=== PATIENT | male | born 1940 | race Caucasian/White ===

== ENCOUNTER 2017-11-12 13:48 | Emergency (ER) | payer OTHER, MEDICARE ==
[~2017-11-12] VITALS: Ht 182.9 cm; Wt 95.3 kg
[~2017-11-12 13:48] MED LIST: ALBUTEROL PO; ASPIRIN325 PO; BENICAR20 MG PO; CARVEDILOL25 MG PO; CENTRUM SILVER1 EAC2 PO; CLOPIDOGREL PO; COREG CR40 MG PO; FISH OIL 1,2001 EAC4 PO; GLUCOSAMINE CH1 EAC7 PO; LANOXIN 0.120.125 M1 PO; LANOXIN 0.120.125 M2 PO; LIPITOR40 MG PO; PLAVIX 75 MG TA75 M1 PO; REQUIP 1 MG TABL1 M1 PO; THEO-24300 MG PO; VENTOLIN HFA INH8 GM IH; VITAMIN D1000 UNI1 PO; ZANTAC 150MG T150 M1 PO
[2017-11-12] MEDS ORDERED: PREDNISONE 20 M20 MG PO (14:34)
[2017-11-12] MEDS ORDERED: BREO ELLIPTA 21 EACH IH (14:34)
[2017-11-12] MEDS ORDERED: DOXYCYCLINE 10100 MG PO (14:35)
[2017-11-12] MEDS ORDERED: TAMIFLU75 MG PER TUBE (14:35)
[2017-11-12 14:57] LABS: URINE BILIRUBIN NEGATIVE (Negative); URINE BLOOD 3+ (Negative); URINE CLARITY CLEAR; URINE COLOR YELLOW; URINE GLUCOSE-RANDOM* NEGATIVE (Negative); URINE KETONES NEGATIVE (Negative); URINE NITRITE-REFLEX NEGATIVE (Negative); URINE PROTEIN (DIPSTICK) TRACE (Negative); URINE UROBILINOGEN 0.2 E.U./dl (0.2-1.0)
[2017-11-12 14:58] LABS: ABSOLUTE NEUTROPHILS 7.6 thou/uL (1.4-8.2); BASOPHILS 0.1 % (0.0-2.0); EOSINOPHILS 0.8 % (0.0-3.0); HEMATOCRIT 43.6 % (42.0-52.0); HEMOGLOBIN 14.9 gm/dL (14.0-18.0); LYMPHOCYTES 23.5 % (24.0-44.0); MCH 32.7 pg (26.0-34.0); MCHC 34.1 g/dL (28.0-37.0); MCV 95.9 fL (80.0-100.0); MONOCYTES 9.8 % (1.0-8.0); PLATELET COUNT 233 thou/uL (150-400); POLYS 65.8 % (36.0-66.0); RBC 4.55 mil/uL (4.50-6.00); WBC 11.5 thou/uL (4.0-11.0)
[2017-11-12 15:00] LABS: CALCIUM 9.6 mg/dL (8.5-10.1); CREATININE 1.8 mg/dL (0.7-1.3); POTASSIUM 4.7 mmol/L (3.5-5.1)
[2017-11-12 15:00] LABS: URINE LEUKOCYTES-REFLEX TRACE (Negative)
[2017-11-12 15:12] LABS: SQUAMOUS None Seen /LPF (0-3)
[2017-11-12 15:13] LABS: BACTERIA-REFLEX 1-9 Few /HPF (None Seen); CASTS None Seen /LPF (None Seen); URINE RBC >20 Many /HPF (0-2)
[2017-11-12 15:14] LABS: CRYSTALS None Seen /LPF (None Seen); URINE WBC-REFLEX 0-5 Rare /HPF (0-5)
[2017-11-12] MEDS ORDERED: B & O SUPPRETT1 EAC1 RECTAL (15:57)
[2017-11-12 17:47] VITALS: BP 139/57
== END 2017-11-12 17:50 | disposition home or self-care (01) ==
LOC: ER 13:48
PROVIDERS: Emergency Medicine
DX: R30.0 Dysuria (principal); J45.909 Unspecified asthma, uncomplicated; I25.2 Old myocardial infarction

== ENCOUNTER 2018-02-28 06:40 | Inpatient (IN) | payer OTHER, MEDICARE ==
[~2018-02-28] VITALS: Ht 182.9 cm; Wt 99.3 kg
--- NOTE | ~2018-02-28 | D ---
[facility] [place] [address] DISCHARGE SUMMARY Name: MONTY SMART Room #: 210-P [facility] IN M.R.#: [id number] Admission: 03/01/18 Attend Phys: Evaristo Arreola MD, Discharge: 03/03/18 Date of : 38 Report #: [id number] THIS REPORT FOR: //name// CC: Gasper Figueroa DATE OF SERVICE: 03/03/2018 HOSPITAL COURSE: The patient is a 77-year-old male who was admitted for cardiac catheterization and intervention and flow wire of the left main intervention of the circumflex if flow wire was negative. He was found to have some acute kidney insufficiency on chronic kidney disease. Seen by Nephrology. Longstanding history of obstructive uropathy and stone in the bladder. He unfortunately cultured pseudomonas in his urine. He is an I and O cath, fluids, and holding the INOCENCIO, ARB diuretic, creatinine fell to 2:1 to the catheterization lab. The FFR across the left main lesion which was 50%-60% suggested 0.97 not physiologically significant. Thus, then intervention to the circumflex is a complex case because of severe tortuosity of the aortoiliac system. He is able to dilate and stent the proximal circumflex. The procedure went well, a 2.75 x 12 Resolute drug-eluting stent, but this was postdilated with a noncompliant balloon up to 3.3 mm, yielding 0% residual and ROSA grade 3 flow was a high grade lesion. LAD was preserved right from prior cath was preserved. He was seen by Infectious Disease. He was treated with IV meropenem, which was marginally sensitive than Fortaz. Infectious Disease is going to way in, but I believe he will be discharged on Cipro for a week, although they are not confident that the pseudomonas will ever be completely cleared. He is asymptomatic from this. He does feel better post-stent. No complaints of chest pain. His creatinine is 1.9. Potassium 4.4. Troponin 0.53, not significant. H and H was 12.3 and 36.4. He will be discharged on torsemide 20, losartan 25 per Nephrology's recommendations in the lower dose of losartan, aspirin and Plavix. We will cut back to a baby aspirin in 1 month. Flomax, atorvastatin 40, bethanechol 50 b.i.d., carvedilol 12.5 b.i.d., albuterol, and I believe p.o. Cipro, but I am waiting the final recs from Dr. Juve Wright of Infectious Disease. DISCHARGE DIAGNOSES: 1. Coronary artery disease with successful stent of the circumflex artery. Flow wire, pressure wire crossed left main lesion of 50% not hemodynamically or physiologically significant. 2. Acute on chronic kidney insufficiency seen by Nephrology. 3. History of obstructive uropathy with the retained bladder stone. 4. Pseudomonas aeruginosa urinary tract infection. 5. Hypertension. 6. Hypercholesterolemia. [address] [address] DISCHARGE SUMMARY Name: MONTY SMART Room #: 210-P DIS IN M.R.#: [id number] Admission: 03/01/18 Attend Phys: Evaristo Arreola MD, Discharge: 03/03/18 Date of : 38 Report #: [id number] Recommendations and plan are all as noted above. No MRI or dental work for 3 months. No lying in tub, Jacuzzi or ko for a week. Antibiotics per Infectious Disease, which I believe to p.o. Cipro for 7-10 days and then the dual antiplatelet therapy for at least a year. Followup is arranged in 3 months. <ELECTRONICALLY SIGNED> By: Evaristo Arreola MD, FACC 03/06/18 1100 0845 0932 Evaristo Arreola MD, FACC /nt
--- NOTE | ~2018-02-28 | EKG ---
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1940 Requested By: Evaristo Arreola Order Number: [id number] MD: Seb Larose Measurements Intervals [place] Rate: 67 P: 49 MS: 201 QRS: -53 QRSD: 135 T: -23 QT: 441 QTc: 466 Interpretive Statements Sinus rhythm Left bundle branch block Compared to ECG 02/01/2009 06:40:04 Ventricular pacing no longer present Electronically Signed On 02-28-2018 7:45:37 CDT by Seb Larose [email or web address] <ELECTRONICALLY SIGNED> By: Seb Larose MD, [facility] 02/28/18 0745 2 2 Seb Larose MD, [facility] /EPI
--- NOTE | ~2018-02-28 | H ---
[facility] [place] [address] HISTORY AND PHYSICAL Name: MONTY SMART Room #: 210-P [facility] IN M.R.#: [id number] Admission: 03/01/18 Attend Phys: Evaristo Arreola MD, Discharge: 03/03/18 Date of : 38 Report #: [id number] THIS REPORT FOR: //name// CC: Gasper Figueroa DATE OF SERVICE: 02/28/2018 HISTORY OF PRESENT ILLNESS: The patient is a 77-year-old male who was planning on an elective fractional flow wire of the left main lesion which was documented a few weeks ago and possible PTCA stent of a high-grade circumflex lesion. His baseline creatinine had been approximately 1.7; however, he is at 2.6 today. He has a long history of obstructive uropathy and prior urinary tract infections and is followed by Dr. Wagoner of Urology. He is supposed to I and O catheterize himself 3 times a day, which he states he is mostly compliant with. He has had a limited inferior lateral infarct and had emergent stents placed to the circumflex and the circumflex OM in 05/2008, ejection fraction of 45%. He had a recent left carotid endarterectomy. He also has an 80% to 90% left internal carotid artery stenosis. This was overestimated by Doppler and less than that on angiography. He has been compliant with his medications. He has not had unstable symptoms, perhaps some dyspnea and shortness of breath as a possible anginal equivalent. The left main lesion looked to be approximately 50%. Thus, the need for a flow wire for further evaluation. MEDICATIONS: He is currently on Albuterol, baby aspirin, Symbicort, carvedilol 12.5 b.i.d., vitamin D, Plavix, losartan 50, magnesium, glucosamine, Crestor 10, Flomax, melatonin and Demadex 20. PAST MEDICAL HISTORY: Positive for the inferior lateral infarct, emergent stents placed in 2007, circumflex and circumflex OM, now with a recurrent stenosis in the circumflex; ischemic cardiomyopathy; hypertension; hypercholesterolemia; obstructive uropathy; DJD; prior back surgery and pacemaker placement with ICD. SOCIAL HISTORY: He is , with children. He is retired. One-to-two cups of coffee a day. Social alcohol. No tobacco, former tobacco user. FAMILY HISTORY: Strongly positive for father with premature [place]. REVIEW OF SYSTEMS: Essentially negative, except for stated above. PHYSICAL EXAMINATION: VITAL SIGNS: Blood pressure is 130/76, pulse was 70s. HEENT: Eyes reveal no xanthelasmas. Pharynx is clear. [facility] [address] [place] [address] HISTORY AND PHYSICAL Name: MONTY SMART Room #: 210-P DIS IN M.R.#: [id number] Admission: 03/01/18 Attend Phys: Evaristo Arreola MD, Discharge: 03/03/18 Date of : 38 Report #: [id number] NECK: Shows preserved upstrokes, without JVD or bruits. LUNGS: Clear. CARDIAC EXAMINATION: Regular rate and rhythm, S1, S2. ABDOMEN: Soft. No HSM or abdominal bruit. EXTREMITIES: Trace edema, with pulses diminished. NEUROLOGIC: Nonfocal. SKIN: Warm and dry, without xanthoma or ulcer. MUSCULOSKELETAL: Generalized arthritic changes. ASSESSMENT: 1. Acute kidney injury on chronic kidney disease. Creatinine from 1.7 to 1.6, of unclear etiology. 2. Coronary artery disease with moderate left main and high-grade circumflex lesion, in need of possible intervention to circumflex and flow wire to left main. 3. Mild ischemic cardiomyopathy with prior inferolateral wall infarct, emergent stents placed to circumflex and circumflex obtuse marginal in 2007. 4. Hypertension. 5. Hypercholesterolemia. 6. Obstructive uropathy. 7. Degenerative joint disease. RECOMMENDATIONS AND PLAN: We will hold on cardiac catheterization. We will admit to CCU. We will see the patient's renal Doppler currently being performed, looking for renal artery stenosis. We will place Hernandes catheter to monitor urine output. The patient does have some symptoms from this coronary artery disease with his dyspnea and shortness of breath. I would like to perform the flow wire and intervene this hospitalization if possible. Risks, benefits and alternatives were discussed with the patient and his family. We will proceed in this fashion. <ELECTRONICALLY SIGNED> By: Evaristo Arreola MD, FACC 03/06/18 1100 0937 1010 Evaristo Arreola MD, FACC /nt
--- NOTE | ~2018-02-28 | EKG ---
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1940 Requested By: Evaristo Arreola Order Number: [id number] MD: Seb Larose Measurements Intervals [place] Rate: 63 P: ND: 210 QRS: -52 QRSD: 137 T: -53 QT: 437 QTc: 448 Interpretive Statements Atrial-paced rhythm Left bundle branch block Compared to ECG 02/28/2018 07:03:59 Atrial pacing is now present Electronically Signed On 03-01-2018 8:27:56 CDT by Seb Larose [email or web address] <ELECTRONICALLY SIGNED> By: Seb Larose MD, [facility] 03/01/18 08 0551 0551 Seb Larose MD, [facility] /EPI
--- NOTE | ~2018-02-28 | HC ---
[facility] [place] [address] CONSULTATION Name: MONTY SMART Room #: 210-P [facility] IN M.R.#: [id number] Admission: 03/01/18 Attend Phys: Evaristo Arreola MD, Discharge: Date of : 38 Report #: [id number] THIS REPORT FOR: //name// CC: Gasper Figueroa DATE OF SERVICE: 03/02/2018 ATTENDING PHYSICIAN: Dr. Arreola. REASON FOR CONSULTATION: Pseudomonas in urine. HISTORY OF PRESENT ILLNESS: The patient is a 77-year-old white man with coronary artery disease requiring coronary artery stenting, which he underwent. The patient is known to have obstructive uropathy requiring self catheterization, who is under the care of Dr. Gasper Wagoner. The patient also, according to son, has a bladder stone and they queried me about removal of that. Obviously, this is a question for Dr. Wagoner. The patient appears to be asymptomatic from the urinary tract standpoint currently. PAST MEDICAL HISTORY: Previous myocardial infarction, stenting in 2007. Recurrent stenosis requiring stenting again today. Ischemic cardiomyopathy. Hypertension. Dyslipidemia. Spinal stenosis requiring cervical and lumbar decompression by Dr. Murphy. According to the patient's , the patient had benign prostatic hypertrophy and appears that he will be going home with a Hernandes catheter in place. SOCIAL HISTORY: . Four children. Retired. Social alcohol, no tobacco. REVIEW OF SYSTEMS: Some cardiovascular issues, otherwise negative. Recent episode of pneumonia, influenza and urinary tract infection requiring hospitalization at [facility]. DRUG ALLERGIES: None listed. MEDICATIONS: The patient has received a single dose of meropenem, he is on losartan, torsemide. I started Fortaz a gram every 12 hours today. He is on aspirin, clopidogrel, p.r.n., acetaminophen, p.r.n. sublingual nitroglycerin, p.r.n. ondansetron, atropine as needed, tamsulosin, bethanechol, atorvastatin, ropinirole, bisacodyl, albuterol inhalation treatment, budesonide, carvedilol, baclofen p.r.n. PHYSICAL EXAMINATION: GENERAL: A well-developed man, overweight, in no distress, afebrile since [address] [address] CONSULTATION Name: MONTY SMART [facility] [id number] Admission: 03/01/18 Attend Phys: Evaristo Arreola MD, Discharge: Date of : 38 Report #: [id number] admission. VITAL SIGNS: Temperature 98.4, pulse 73, respirations 18, BP 117/57, height 6 feet, weight 219 pounds. HEENMT: Within range. NECK: Supple. LUNGS: Clear. HEART: S1, S2. No gallop or murmur. ABDOMEN: Soft, no masses or megaly. GENITAL AND RECTAL: Deferred. Hernandes catheter in place. EXTREMITIES: Trace pretibial edema. NEUROLOGIC: Grossly within normal limits. LABORATORY DATA: Sodium 141, potassium 4, BUN 34, creatinine 1.6, albumin 3.1. WBC on admission 8000, hemoglobin 12.3, platelets 190,000. Urinalysis with trace blood, pyuria and bacteriuria. Urine culture revealed greater than 100,000 colonies per mL of Pseudomonas aeruginosa sensitive to most antibiotics, resistant to imipenem, no sensitivity to meropenem, and intermediate to ciprofloxacin and levofloxacin. ASSESSMENT: 1. Possible asymptomatic bacteriuria with Pseudomonas aeruginosa. 2. Obstructive uropathy, chronic, self catheterization and possible bladder stone and benign prostatic hypertrophy. 3. Chronic kidney disease. 4. Coronary artery disease status post stenting. SUGGESTIONS: We will give a few doses of Fortaz today and I doubt very much the patient will need parenteral antibiotics at home, and obviously we will not be able to eradicate the germ in the patient's urinary tract in view of the present obstructive uropathy and bladder stone. Dr. Arreola, thank you for requesting my suggestions. <ELECTRONICALLY SIGNED> By: Juve Wright MD 03/03/18 0916 1036 1618 Juve Wright MD /nt
--- NOTE | ~2018-02-28 | CATHLAB ---
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 Evaristo Arreola Collector Of Aquarium Specimens, Pat [place] Monitor, Gasper Avitia Knisely, Ceola RN RN, Cayden Pablo RN, Amelia Kearns RN RN, Clemencia Ayoub Chimney Supervisor Brick, Jessica Grace RTR, BOX COVERER HAND Monitor Procedures Performed Art Access - R femoral artery* 83562 Initial Mod Sed Same Phys/QHP Gr5y 770020 70096 Mod Sed Same Phys/QHP Ea 811730 Coronary Angiography Only 9753076 CORANG FFR 9111254 FFR JULIANA Place w/wo Plasty Single CIRC 465476 Hemostasis w/ Mynx Indication Chest pain Procedure Narrative The patient was brought urgently to the Cardiac Catheterization Laboratory and was prepped and draped in a sterile manner. The Right Groin^ was infiltrated with 1% Lidocaine subcutaneous anesthesia. A PINNACLE 6FR Sheath #[id number] sheath was inserted into the RFA^. Coronary angiography was performed using coronary diagnostic catheters. The left coronary system was accessed and visualized with a VISTA 6FR XB LAD 4.5 #[id number] catheter. Closure device was deployed with a 6 Fr Mynx. The patient tolerated the procedure well and there were no complications associated with the procedure. There was no hematoma. Intraoperative Conscious Sedation Sedation start time: 08:50 Case end Time: 10:20 Fentanyl 50 mcg Versed 1.5 mg Fluoro Time: 22.53 minutes Dose: DAP 21600.20 cGycm2 [address] [address] INVASIVE PROCEDURE REPORT Name: MONTY SMART Room #: 210-P [facility].#: [id number] Admission: 02/28/18 Attend Phys: Evaristo Arreola, Discharge: Date of : 38 Date of Service: 03/01/18 1725 Report #: [id number] Contrast Type and Amount: Visipaque 145 ml Hemodynamics The aortic pressure is 167/71 mmHg with a mean of 109 mmHg. PCI Technique Lesion Anticoagulation was achieved with Heparin. Percutaneous coronary intervention was performed on the proximal circumflex artery segment. A VISTA 6FR XB LAD 4.5 #[id number] Guide Catheter was used to engage the ostium. A Luge Wire .014 x 182CM #[id number] Interventional Guidewire was used to cross the lesion. BALLOON DILATION A Balloon catheter Sprinter OTW 2.5 x 12 #[id number] was inserted and inflated up to 10.00atm for 21seconds. Additional Inflation: 14.00atm for 30seconds. STENT DEPLOYMENT A drug-eluting stent RESOLUTE OTW 2.75 X 12 #[id number] was inserted and inflated up to 15.00atm for 45seconds. POST STENT DEPLOYMENT BALLOON DILATION A Balloon catheter Euphora NC RX 3.25 x 8 #[id number] was inserted and inflated up to 18.00atm for 19seconds. Additional Inflation: 18.00atm for 23seconds. Additional Inflation: 18.00atm for 19seconds. Conclusion #1 assessment PTCA stent of the proximal circumflex OM lesion 98% to 0% placement of a 2.75 x 12 resolute drug-eluting stent postdilated 3.3 mm in size with high pressure postdilatation. #2 fractional flow reserve PressureWire system utilized to reevaluate distal left main lesion. FFR of 0.97. Suggest not significant left main stenosis. Will follow closely and treat aggressively #3 there was mild LAD and RCA disease noted on the catheterization of a few months ago. #4 significant aortoiliac tortuosity with very difficult cannulization of the left main. Further interventions will require at least a 35 cm sheath left main cannulation with a 4.5 LAD EBU attempt of 7-8 guide catheters was utilized and after exchanging for multiple longer sheaths. Patient hemodynamically stable upon transfer heparin and [facility] [place] [address] INVASIVE PROCEDURE REPORT Name: MONTY SMART Room #: 210-P [facility] IN M.R.#: [id number] Admission: 02/28/18 Attend Phys: Evaristo Arreola, Discharge: Date of : 38 Date of Service: 03/01/181724 Report #: [id number] were utilized during this procedure. Transfer to CCU to follow post stent protocol. <ELECTRONICALLY SIGNED> By: Evaristo Arreola MD, FACC 03/01/181724 24 24 Evaristo Arreola MD, FACC /INF
--- NOTE | ~2018-02-28 | HC ---
[facility] [place] [address] CONSULTATION Name: MONTY SMART Room #: 210-P [facility] IN M.R.#: [id number] Admission: 03/01/18 Attend Phys: Evaristo Arreola MD, Discharge: Date of : 38 Report #: [id number] THIS REPORT FOR: //name// CC: Gasper Figueroa DATE OF SERVICE: 02/28/2018 ATTENDING PHYSICIAN: Dr. Arreola. REASON FOR CONSULTATION: Elevated creatinine. HISTORY OF PRESENT ILLNESS: This 77-year-old patient with a previous history of coronary artery disease and AICD in place has known chronic kidney disease. He was hospitalized earlier this year with urinary sepsis, urinary retention, had an indwelling Hernandes and now is doing 3 times daily straight cath, emptying his bladder at home. He has had previous stents placed in 2007, circumflex and obtuse marginal, now with recurrent stenosis in the circumflex and possible left main lesion. He has also had a history of prior back surgery, ICD and pacemaker placement as mentioned. HOME MEDICATIONS: Include albuterol inhaler, aspirin 325 mg daily, baclofen 10 mg t.i.d., bethanechol 25 mg b.i.d., Symbicort, carvedilol 25 mg b.i.d., vitamin D 1000 units daily, Plavix 75 mg daily, doxycycline 100 mg daily, Advair, losartan 50 mg daily, magnesium, melatonin, potassium 10 mEq daily, torsemide 40 mEq daily, Flomax 0.4 mg daily, Crestor 10 mg daily, ReQuip 1 mg at bedtime. FAMILY HISTORY: Father had premature coronary disease. SOCIAL HISTORY: Former smoker. , lives at home with his . Occasional alcohol. REVIEW OF SYSTEMS: GENERAL: He has been feeling reasonably well. EYES: His vision is okay. ENT: Hearing okay, swallows okay. No mouth sores. ENDOCRINE: No diabetes or thyroid disease. RESPIRATORY: Usually short winded with asthma and wheezing. CARDIAC: No recent chest pains. He had a lot of swelling in his legs. That is improved with the initiation of torsemide. GASTROINTESTINAL: No nausea, vomiting, diarrhea or bloody stools. GENITOURINARY: No hematuria. He has had urinary retention, doing straight caths. NEUROLOGIC: Apparently, an asymptomatic prior stroke as found on CT scan. Full [facility] [address] [place] [address] CONSULTATION Name: MONTY SMART Room #: 210-P [facility] IN ..#: [id number] Admission: 03/01/18 Attend Phys: Evaristo Arreola MD, Discharge: Date of : 38 Report #: [id number] history taken from the electronic medical record, the written medical record, the patient and the patient's family as well as Dr. Arreola. PHYSICAL EXAMINATION: GENERAL: This is a reasonably well-appearing, comfortable gentleman seen lying in his hospital bed. SKIN: Unremarkable. SKELETAL: Well developed, nourished. HEENT: Extraocular movements are full. No scleral icterus. Hearing and vision intact. Mucous membranes moist. Tongue, buccal mucosa benign. NECK: Supple, no carotid bruits, lymphadenopathy or thyromegaly. CHEST: Clear to auscultation. HEART: Regular. ABDOMEN: Soft and nontender, without bruits, masses or organomegaly. Slightly obese. EXTREMITIES: Show 1+ peripheral edema. Peripheral pulses slightly diminished. NEUROLOGIC: Grossly intact. LABORATORY DATA: Hemoglobin 12.3, sodium 145, potassium 4.4, chloride 108, bicarbonate 31, creatinine 2.6, BUN 56. Urinalysis pending. Renal ultrasound and Doppler done today and personally reviewed, shows a normal renal ultrasound and Doppler study. ASSESSMENT: 1. Acute on chronic kidney disease. The creatinine is up. This may be an effect of the torsemide with diuresis effect. He also has been on losartan, possibly getting some relative volume depletion with some lower blood pressures at times. He had the urinary infection. I will recheck that and make sure there is no reinfection. He has been doing the straight caths. I suspect with some gentle IV fluids, we will be able to improve his creatinine and set him up for the catheterization procedure in the morning and will be able to proceed. 2. Ischemic cardiomyopathy with automatic implantable cardioverter-defibrillator. 3. Asthma. 4. History of hypertension. 5. Recent urinary sepsis with urinary retention, doing straight caths. <ELECTRONICALLY SIGNED> By: Evaristo Pitts MD 03/02/18 1101 1114 23 Evaristo Pitts MD /nt
--- NOTE | ~2018-02-28 | EKG ---
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: : 1940 Requested By: Tonie Crockett Order Number: [id number] MD: Seb Larsoe Measurements Intervals [place] Rate: 70 P: 43 [place]: 206 QRS: -50 QRSD: 126 T: -77 QT: 437 QTc: 472 Interpretive Statements Sinus rhythm With intermittent atrial pacing and occasional premature ventricular complexes Left bundle branch block Compared to ECG 03/01/2018 05:51:33 Ventricular premature complex(es) now present Electronically Signed On 03-02-2018 8:05:37 CDT by Seb Larose [email or web address] <ELECTRONICALLY SIGNED> By: Seb Larose MD, [facility] 03/02/18 0805 4 4 Seb Larose MD, [facility] /EPI
[~2018-02-28 06:40] MED LIST changes: +B & O SUPPRETT1 EAC1 RECTAL; +BREO ELLIPTA 21 EACH IH; +DOXYCYCLINE 10100 MG PO; +PREDNISONE 20 M20 MG PO; +TAMIFLU75 MG PER TUBE
[2018-02-28] MEDS ORDERED: LIORESAL 10 MG10 MG PO (07:20)
[2018-02-28 07:21] LABS: HEMATOCRIT 36.4 % (42.0-52.0); HEMOGLOBIN 12.3 gm/dL (14.0-18.0); MCH 32.3 pg (26.0-34.0); MCHC 33.7 g/dL (28.0-37.0); RBC 3.79 mil/uL (4.50-6.00); RDW 13.4 % (10.5-14.5)
[2018-02-28] MEDS ORDERED: SYMBICORT80 MCG/4.1 INH (07:21)
[2018-02-28] MEDS ORDERED: URECHOLINE 25 M25 M1 PO (07:21)
[2018-02-28] MEDS ORDERED: ADVAIR HFA 230M12 GM INH (07:23)
[2018-02-28] MEDS ORDERED: KRILL OIL500 MG PO (07:23)
[2018-02-28] MEDS ORDERED: MAGOX 400400 MG PO (07:24)
[2018-02-28] MEDS ORDERED: COZAAR 50 MG TA50 M2 PO (07:24)
[2018-02-28] MEDS ORDERED: KLOR-CON 1010 MEQ PO (07:25)
[2018-02-28] MEDS ORDERED: CRESTOR10 MG PO (07:25)
[2018-02-28 07:26] VITALS: BP 138/70
[2018-02-28] MEDS ORDERED: FLOMAX0.4 MG PO (07:26)
[2018-02-28] MEDS ORDERED: MELATONIN3 MG PO (07:26)
[2018-02-28] MEDS ORDERED: DEMADEX20 MG PO (07:26)
[2018-02-28 07:29] LABS: CALCIUM 9.4 mg/dL (8.5-10.1); CREATININE 2.6 mg/dL (0.7-1.3); POTASSIUM 4.4 mmol/L (3.5-5.1)
[2018-02-28 14:34] LABS: URINE BILIRUBIN NEGATIVE (Negative); URINE BLOOD TRACE (Negative); URINE CLARITY CLEAR; URINE COLOR YELLOW; URINE GLUCOSE-RANDOM* NEGATIVE (Negative); URINE KETONES NEGATIVE (Negative); URINE NITRITE-REFLEX NEGATIVE (Negative); URINE PROTEIN (DIPSTICK) NEGATIVE (Negative); URINE UROBILINOGEN 0.2 E.U./dl (0.2-1.0)
[2018-02-28 14:36] LABS: URINE LEUKOCYTES-REFLEX 3+ (Negative)
[2018-02-28 14:48] LABS: CASTS None Seen /LPF (None Seen); CRYSTALS None Seen /LPF (None Seen); SQUAMOUS None Seen /LPF (0-3); URINE RBC 0-2 Rare /HPF (0-2); URINE WBC-REFLEX >25 Many /HPF (0-5)
[2018-02-28 17:05] VITALS: BP 126/72
[2018-02-28 20:33] VITALS: BP 134/66
[2018-03-01] VITALS (15 sets, daily range): BP systolic 90–122; BP diastolic 53–62
[2018-03-01 04:15] LABS: ALBUMIN 3.5 g/dL (3.4-5.0); CALCIUM 8.6 mg/dL (8.5-10.1); CREATININE 2.2 mg/dL (0.7-1.3); MAGNESIUM 2.4 mg/dL (1.8-2.4); PHOSPHORUS 3.5 mg/dL (2.5-4.9); POTASSIUM 4.3 mmol/L (3.5-5.1); TOTAL BILIRUBIN 0.4 mg/dL (<0.1-1.0); TOTAL PROTEIN 6.3 g/dL (6.4-8.2)
[2018-03-02] VITALS: BP 106/56
[2018-03-02 03:53] LABS: ALBUMIN 3.1 g/dL (3.4-5.0); CALCIUM 8.2 mg/dL (8.5-10.1); CREATININE 1.6 mg/dL (0.7-1.3); PHOSPHORUS 3.2 mg/dL (2.5-4.9); TOTAL BILIRUBIN 0.5 mg/dL (<0.1-1.0)
[2018-03-02 04:32] VITALS: BP 113/59
[2018-03-02 08:13] VITALS: BP 117/57
[2018-03-02 10:50] VITALS: BP 101/51
[2018-03-02 17:01] VITALS: BP 134/54
[2018-03-02 19:30] VITALS: BP 125/68
[2018-03-03 02:40] LABS: ALBUMIN 3.3 g/dL (3.4-5.0); CALCIUM 8.5 mg/dL (8.5-10.1); CREATININE 1.9 mg/dL (0.7-1.3); PHOSPHORUS 3.3 mg/dL (2.5-4.9); POTASSIUM 4.4 mmol/L (3.5-5.1)
[2018-03-03 04:29] VITALS: BP 94/50
[2018-03-03 08:00] VITALS: BP 146/72
[2018-03-03] MEDS ORDERED: COZAAR 25 MG TA25 M1 PO (08:20)
[2018-03-03] MEDS ORDERED: ASPIRIN325 PO (08:20)
[2018-03-03] MEDS ORDERED: CIPRO500 MG PO (10:21)
[2018-03-03 10:23] VITALS: BP 146/72
== END 2018-03-03 11:52 | disposition home or self-care (01) | DRG 246 ==
LOC: CATH 06:40 → 2N 06:53 → CATH 09:17 → 2N 03-01 09:40 → ENTRNSPT 03-03 11:39 → EDTRNSPTSTS 03-03 11:42 → 2N 03-03 11:52
PROVIDERS: Internal Medicine Cardiovascular Disease; Internal Medicine Nephrology; Nurse Practitioner Adult Health
PROC: B211YZZ Fluoroscopy of Multiple Coronary Arteries using Other Contrast (ICD-10-PCS; principal; 2018-03-01)
PROC: 027034Z Dilation of Coronary Artery, One Artery with Drug-eluting Intraluminal Device, Percutaneous Approach (ICD-10-PCS; principal; 2018-03-01)
DX: I25.10 Atherosclerotic heart disease of native coronary artery without angina pectoris (principal); N17.1 Acute kidney failure with acute cortical necrosis; N39.0 Urinary tract infection, site not specified; I25.5 Ischemic cardiomyopathy; E78.00 Pure hypercholesterolemia, unspecified; M19.90 Unspecified osteoarthritis, unspecified site; N18.9 Chronic kidney disease, unspecified; N13.9 Obstructive and reflux uropathy, unspecified; J45.909 Unspecified asthma, uncomplicated; E78.5 Hyperlipidemia, unspecified; I65.29 Occlusion and stenosis of unspecified carotid artery; I12.9 Hypertensive chronic kidney disease with stage 1 through stage 4 chronic kidney disease, or unspecified chronic kidney disease; R33.9 Retention of urine, unspecified; N40.0 Benign prostatic hyperplasia without lower urinary tract symptoms; B96.5 Pseudomonas (aeruginosa) (mallei) (pseudomallei) as the cause of diseases classified elsewhere; Z95.5 Presence of coronary angioplasty implant and graft; Z95.0 Presence of cardiac pacemaker; Z82.49 Family history of ischemic heart disease and other diseases of the circulatory system; Z87.891 Personal history of nicotine dependence; Z79.82 Long term (current) use of aspirin; Z79.899 Other long term (current) drug therapy; I25.2 Old myocardial infarction
CPT/HCPCS: 10081

== ENCOUNTER 2018-03-09 19:04 | Inpatient (IN) | payer OTHER, MEDICARE ==
[~2018-03-09] VITALS: Ht 182.9 cm; Wt 101.6 kg
--- NOTE | ~2018-03-09 | HC ---
[facility] [place] [address] CONSULTATION Name: MONTY SMART Estevan Room #: 214-P [facility] IN M.R.#: [id number] Admission: 03/09/18 Attend Phys: Eileen Mendenhall Discharge: Date of : 36 Report #: [id number] THIS REPORT FOR: //name// CC: José Luis Figueroa DATE OF SERVICE: 03/10/2018 NEPHROLOGY CONSULTATION REASON FOR CONSULTATION: Elevated creatinine. HISTORY OF PRESENT ILLNESS: The patient is well known to us, was hospitalized last week with coronary artery disease, underwent a procedure to stent a tight circumflex coronary artery lesion by Dr. Arreola. Creatinine at that time was about 2. He has known chronic kidney disease as well as urologic disease with a neurogenic bladder and does three times daily straight caths. He was readmitted with right groin lesion to rule out pseudoaneurysm and it was felt this was a benign situation, but his creatinine was up to 2.9. Of note, his torsemide was up to 40 mg daily from a prior dose of 20 and he had been restarted on losartan at the time of discharge. PAST MEDICAL HISTORY: Aside from the coronary artery disease, he has had earlier this year a difficult bout with urinary sepsis and urinary retention leading to the current straight caths. He has also had prior back surgery, ICD and pacemaker placement prior. HOME MEDICATIONS: Listed include albuterol inhaler, aspirin 325 mg daily, baclofen, bethanechol 50 mg b.i.d., Symbicort inhaler, carvedilol 12.5 mg b.i.d., Cipro, Plavix 75 mg daily, Krill oil, glucosamine, Centrum, potassium, Requip 2 mg at bedtime, torsemide 40 mg daily, tamsulosin and losartan 25 mg daily. SOCIAL HISTORY: No substantial cigarettes or alcohol at the current time. He is a former smoker. FAMILY HISTORY: Positive for coronary artery disease. REVIEW OF SYSTEMS: GENERAL: He has been feeling reasonably well. There has been no toe pain or toe lesions. EYES: Vision has been okay. ENT: No difficulty with hearing or swallowing. No mouth sores or ulcers. [facility] [address] [place] [address] CONSULTATION Name: MONTY SMART Estevan Room #: [address] [place] [address].#: [id number] Admission: 03/09/18 Attend Phys: Eileen Mendenhall Discharge: Date of : 38 Report #: [id number] ENDOCRINE: No history of diabetes or thyroid disease. RESPIRATORY: He has not had any bad exacerbations of his chronic asthma. CARDIAC: He is not having any chest pains. GASTROINTESTINAL: No nausea, vomiting or diarrhea. GENITOURINARY: Doing straight caths as mentioned. NEUROLOGIC: Negative. PHYSICAL EXAMINATION: GENERAL: Well-appearing gentleman. SKIN: Unremarkable. SKELETAL: Well developed, well nourished. HEENT: Extraocular movements are full. No scleral icterus. NECK: Supple with no carotid bruits. CHEST: Clear to auscultation. HEART: Regular. ABDOMEN: Soft. EXTREMITIES: Show no peripheral edema. LABORATORY DATA: As mentioned, creatinine 2.9. ASSESSMENT AND PLAN: 1. Chronic kidney disease with acute exacerbation. I will hold his losartan. Decrease his torsemide to 20 mg a day and reevaluate him in one week in the office. 2. Coronary artery disease with ischemic cardiomyopathy, status post recent stent. He, of course must be somewhat concerned about cholesterol emboli, etc., but I see no lesions on his toes or other stigmata. 3. Urinary retention with straight caths. By: 1131 [id number] Evaristo Pitts MD /nt
[~2018-03-09 19:04] MED LIST changes: +ADVAIR HFA 230M12 GM INH; +CIPRO500 MG PO; +COZAAR 25 MG TA25 M1 PO; +COZAAR 50 MG TA50 M2 PO; +CRESTOR10 MG PO; +DEMADEX20 MG PO; +FLOMAX0.4 MG PO; +KLOR-CON 1010 MEQ PO; +KRILL OIL500 MG PO; +LIORESAL 10 MG10 MG PO; +MAGOX 400400 MG PO; +MELATONIN3 MG PO; +SYMBICORT80 MCG/4.1 INH; +URECHOLINE 25 M25 M1 PO
[2018-03-09 19:20] VITALS: BP 145/54
[2018-03-09 20:35] LABS: ABSOLUTE NEUTROPHILS 6.4 thou/uL (1.4-8.2); BASOPHILS 0.6 % (0.0-2.0); EOSINOPHILS 3.7 % (0.0-3.0); HEMATOCRIT 29.2 % (42.0-52.0); HEMOGLOBIN 10.6 gm/dL (14.0-18.0); LYMPHOCYTES 19.6 % (24.0-44.0); MCH 34.4 pg (26.0-34.0); MCHC 36.2 g/dL (28.0-37.0); MCV 94.9 fL (80.0-100.0); MONOCYTES 10.2 % (1.0-8.0); PLATELET COUNT 219 thou/uL (150-400); POLYS 65.9 % (36.0-66.0); RBC 3.08 mil/uL (4.50-6.00); RDW 13.7 % (10.5-14.5); WBC 9.6 thou/uL (4.0-11.0)
[2018-03-09 20:51] LABS: APTT 26.4 Seconds (24.5-32.8); INR 1.1; PROTIME 10.9 Seconds (9.3-11.4)
[2018-03-09 22:57] VITALS: BP 130/53
[2018-03-09 23:06] VITALS: BP 126/74
[2018-03-09 23:34] VITALS: BP 149/77
[2018-03-10] MEDS ORDERED: DULCOLAX5 MG PO (00:42)
[2018-03-10 04:10] LABS: HEMATOCRIT 29.3 % (42.0-52.0); HEMOGLOBIN 10.1 gm/dL (14.0-18.0)
[2018-03-10 04:11] LABS: HEMATOCRIT 28.9 % (42.0-52.0); MCH 32.8 pg (26.0-34.0); MCHC 34.6 g/dL (28.0-37.0); MCV 94.6 fL (80.0-100.0); RBC 3.05 mil/uL (4.50-6.00); RDW 13.4 % (10.5-14.5); WBC 8.6 thou/uL (4.0-11.0)
[2018-03-10 04:25] LABS: CALCIUM 9.4 mg/dL (8.5-10.1); CREATININE 2.9 mg/dL (0.7-1.3); POTASSIUM 3.7 mmol/L (3.5-5.1)
[2018-03-10 04:51] VITALS: BP 115/58
[2018-03-10 07:40] VITALS: BP 117/60
[2018-03-10 12:00] VITALS: BP 123/63
[2018-03-10 14:57] LABS: CALCIUM 9.6 mg/dL (8.5-10.1); CREATININE 2.8 mg/dL (0.7-1.3); POTASSIUM 4.4 mmol/L (3.5-5.1)
[2018-03-10 15:15] VITALS: BP 112/62
[2018-03-10 15:58] VITALS: BP 112/62
== END 2018-03-10 16:24 | disposition home or self-care (01) | DRG 919 ==
LOC: ER 19:04 → EROBS 22:36 → 2N 22:36 → ENTRNSPT 03-10 16:03 → 2N 03-10 16:24
PROVIDERS: Emergency Medicine; Internal Medicine; Nurse Practitioner Family
PROC: 5A1935Z Respiratory Ventilation, Less than 24 Consecutive Hours (ICD-10-PCS; principal; 2018-03-10)
PROC: 0BH17EZ Insertion of Endotracheal Airway into Trachea, Via Natural or Artificial Opening (ICD-10-PCS; principal; 2018-03-10)
DX: L76.32 Postprocedural hematoma of skin and subcutaneous tissue following other procedure (principal); N17.0 Acute kidney failure with tubular necrosis; N39.0 Urinary tract infection, site not specified; I13.0 Hypertensive heart and chronic kidney disease with heart failure and stage 1 through stage 4 chronic kidney disease, or unspecified chronic kidney disease; Y84.0 Cardiac catheterization as the cause of abnormal reaction of the patient, or of later complication, without mention of misadventure at the time of the procedure; J45.909 Unspecified asthma, uncomplicated; I50.9 Heart failure, unspecified; I25.10 Atherosclerotic heart disease of native coronary artery without angina pectoris; E78.00 Pure hypercholesterolemia, unspecified; N18.9 Chronic kidney disease, unspecified; I25.5 Ischemic cardiomyopathy; R33.9 Retention of urine, unspecified; G47.33 Obstructive sleep apnea (adult) (pediatric); Z95.5 Presence of coronary angioplasty implant and graft; Z79.82 Long term (current) use of aspirin; I25.2 Old myocardial infarction; Z87.891 Personal history of nicotine dependence; Z95.810 Presence of automatic (implantable) cardiac defibrillator; Z85.820 Personal history of malignant melanoma of skin; Z79.02 Long term (current) use of antithrombotics/antiplatelets; Z79.899 Other long term (current) drug therapy; Y92.89 Other specified places as the place of occurrence of the external cause; Z82.49 Family history of ischemic heart disease and other diseases of the circulatory system
CPT/HCPCS: 10081

== ENCOUNTER → 2018-07-04 | Outpatient (CLI) | payer OTHER, MEDICARE ==
[~2018-07-04] VITALS: Ht 182.9 cm; Wt 99.8 kg
[~2018-07-04] MED LIST changes: +DULCOLAX5 MG PO
[2018-07-04 07:06] VITALS: BP 138/57
[2018-07-04 07:20] LABS: ABSOLUTE NEUTROPHILS 5.3 thou/uL (1.4-8.2); BASOPHILS 0.7 % (0.0-2.0); EOSINOPHILS 2.6 % (0.0-3.0); HEMATOCRIT 33.3 % (42.0-52.0); HEMOGLOBIN 11.5 gm/dL (14.0-18.0); LYMPHOCYTES 23.1 % (24.0-44.0); MCH 32.9 pg (26.0-34.0); MCHC 34.5 g/dL (28.0-37.0); MCV 95.5 fL (80.0-100.0); MONOCYTES 9.9 % (1.0-8.0); PLATELET COUNT 185 thou/uL (150-400); POLYS 63.7 % (36.0-66.0); RBC 3.49 mil/uL (4.50-6.00); RDW 14.1 % (10.5-14.5); WBC 8.3 thou/uL (4.0-11.0)
[2018-07-04 07:33] LABS: APTT 25.7 Seconds (24.5-32.8); PROTIME 10.7 Seconds (9.3-11.4)
[2018-07-04 07:41] LABS: CALCIUM 9.7 mg/dL (8.5-10.1); CREATININE 2.6 mg/dL (0.7-1.3); POTASSIUM 4.1 mmol/L (3.5-5.1)
[2018-07-04 07:47] LABS: ALBUMIN 3.7 g/dL (3.4-5.0); TOTAL BILIRUBIN 0.4 mg/dL (<0.1-1.0); TOTAL PROTEIN 7.4 g/dL (6.4-8.2)
== END | disposition home or self-care (01) ==
LOC: CATH 06:16
PROVIDERS: Internal Medicine Cardiovascular Disease
DX: Z45.02 Encounter for adjustment and management of automatic implantable cardiac defibrillator (principal); I11.0 Hypertensive heart disease with heart failure; I50.9 Heart failure, unspecified; I25.10 Atherosclerotic heart disease of native coronary artery without angina pectoris; I25.2 Old myocardial infarction; I25.5 Ischemic cardiomyopathy; I73.9 Peripheral vascular disease, unspecified; E78.00 Pure hypercholesterolemia, unspecified; J45.909 Unspecified asthma, uncomplicated; G62.9 Polyneuropathy, unspecified; G47.33 Obstructive sleep apnea (adult) (pediatric); Z85.828 Personal history of other malignant neoplasm of skin; Z98.890 Other specified postprocedural states; Z79.899 Other long term (current) drug therapy; Z82.49 Family history of ischemic heart disease and other diseases of the circulatory system; Z95.5 Presence of coronary angioplasty implant and graft
CPT/HCPCS: 62110; 62900; 70005

== ENCOUNTER 2019-01-28 22:58 | Emergency (ER) | payer OTHER, MEDICARE ==
[~2019-01-28] VITALS: Ht 241.3 cm; Wt 104.3 kg
[2019-01-28] MEDS ORDERED: XARELTO15 MG PO ×2 (23:16→23:28)
[2019-01-28] MEDS ORDERED: SPIRONOLACTONE25 M1 PO (23:30)
[2019-01-28] MEDS ORDERED: ASPIR 8181 MG PO (23:31)
[2019-01-28] MEDS ORDERED: KRILL OIL500 MG PO (23:32)
[2019-01-28 23:44] LABS: APTT 48.2 Seconds (24.5-32.8); HEMOGLOBIN 10.9 gm/dL (14.0-18.0); INR 1.3; MCH 32.4 pg (26.0-34.0); MCHC 33.9 g/dL (28.0-37.0); MCV 95.5 fL (80.0-100.0); PROTIME 13.8 Seconds (9.3-11.4); RBC 3.35 mil/uL (4.50-6.00); RDW 14.7 % (10.5-14.5); WBC 9.1 thou/uL (4.0-11.0)
[2019-01-29 03:38] VITALS: BP 116/61
== END 2019-01-29 03:55 | disposition home or self-care (01) ==
LOC: ER 22:58
PROVIDERS: Emergency Medicine
DX: S01.512A Laceration without foreign body of oral cavity, initial encounter (principal); X58.XXXA Exposure to other specified factors, initial encounter; Y93.89 Activity, other specified; Y92.89 Other specified places as the place of occurrence of the external cause; Y99.8 Other external cause status; J45.909 Unspecified asthma, uncomplicated; I25.2 Old myocardial infarction; E78.00 Pure hypercholesterolemia, unspecified; I11.0 Hypertensive heart disease with heart failure; I50.9 Heart failure, unspecified; G47.30 Sleep apnea, unspecified; I25.5 Ischemic cardiomyopathy; Z87.01 Personal history of pneumonia (recurrent); Z87.440 Personal history of urinary (tract) infections; I25.10 Atherosclerotic heart disease of native coronary artery without angina pectoris; Z79.899 Other long term (current) drug therapy; Z79.01 Long term (current) use of anticoagulants

== ENCOUNTER 2019-09-28 18:13 | Inpatient (IN) | payer OTHER, MEDICARE ==
[~2019-09-28] VITALS: Ht 182.9 cm; Wt 108.9 kg
--- NOTE | ~2019-09-28 | HC ---
[facility] [address] [address] [place] [address] CONSULTATION Name: MONTY SMART Room #: 461-P ADM IN M.R.#: [id number] Admission: 09/28/19 Attend Phys: Emre Anderson MD Discharge: Date of : 38 Report #: [id number] THIS REPORT FOR: //name// CC: Emre Figuerao DATE OF SERVICE: 09/30/2019 REASON FOR CONSULTATION: Elevated creatinine. REASON FOR PRESENTATION: Blood in the urine. HISTORY OF PRESENT ILLNESS: This is an 79-year-old with history of coronary artery disease, status post stent, AICD status, chronic kidney disease with a baseline creatinine anywhere from 2.5 to 3. He is also known to have neurogenic bladder and is known to follow with Dr. Wagoner from Urology. He straight caths himself everyday. He presented with increasing hematuria. He also reported to some weakness. No fever or chills, but he did have some dysuria. No reported prior similar episodes. He was admitted to further evaluate his urinary symptoms and was initiated on appropriate antibiotics. His creatinine on presentation was mildly elevated, but at his baseline. It has now trended down to 2.0. A consult was placed for me to manage his chronic kidney disease. PAST MEDICAL HISTORY: Extensive and includes the followin. Hypertension. 2. Coronary artery disease. 3. Chronic back pain with multiple surgeries to his upper, middle, lower back. 4. Peripheral vascular disease. 5. Wrist surgery. 6. Chronic kidney disease with a baseline creatinine of around 2.5. 7. Facial melanoma. 8. Hyperlipidemia. 9. Carotid artery disease. 10. Cardiomyopathy with ejection fractions of around 40%. 11. Obstructive uropathy with neurogenic bladder. 12. Sleep apnea. MEDICATIONS: 1. Baclofen. 2. Spironolactone. 3. Torsemide. 4. Rosuvastatin. 5. Carvedilol. ALLERGIES: None. [facility] [address] [place] [address] CONSULTATION Name: MONTY SMART Room #: 461-P [facility] IN ..#: [id number] Admission: 09/28/19 Attend Phys: Emre Anderson MD Discharge: Date of : 38 Report #: [id number] SOCIAL HISTORY: He lives with his . No reported alcohol abuse. ALLERGIES: None. REVIEW OF SYSTEMS: GENERAL: No fever or chills. CARDIOVASCULAR: No chest pain or palpitation. PULMONARY: No cough or hemoptysis. GASTROINTESTINAL: No nausea or vomiting. GENITOURINARY: Significant for hematuria. MUSCULOSKELETAL: Chronic back pain and mobility issues. NEUROLOGICAL: No headache, no dizziness. PHYSICAL EXAMINATION: GENERAL: Alert, oriented, in no apparent distress. VITAL SIGNS: Most recent blood pressure reading is around 137/67. He is afebrile with a temperature of 36.8. HEAD AND NECK: No jugular venous distention. CHEST: No crackles. CARDIOVASCULAR: Regular with no rub detected. ABDOMEN: Soft, nontender. LOWER EXTREMITIES: No edema. LABORATORY DATA: Reviewed. White blood cell count is 8.1. Chemistry from today revealed a sodium of 138, BUN of 33, creatinine 2.0. IMPRESSION AND PLAN: 1. Chronic kidney disease at baseline. 2. Neurogenic bladder with what seems to be urinary tract infection. 3. Cardiomyopathy. 4. Coronary artery disease. 5. From the renal perspective, the patient seems to be at his baseline. He is euvolemic. Electrolytes are all at target. Creatinine is actually better than his best values in the clinic. 6. Neurogenic bladder with a potential urinary tract infections, currently being treated. Cultures are pending. We will continue to follow. By: [id number] Eric Sutton MD /nt
[~2019-09-28 18:13] MED LIST changes: +ASPIR 8181 MG PO; -GLUCOSAMINE CH1 EAC7 PO; +GLUCOSAMINE CH1 EAC8 PO; +SPIRONOLACTONE25 M1 PO; +XARELTO15 MG PO
[2019-09-28 18:14] VITALS: BP 131/56
[2019-09-28 20:26] LABS: URINE BILIRUBIN NEGATIVE (Negative); URINE BLOOD TRACE (Negative); URINE CLARITY CLEAR; URINE COLOR YELLOW; URINE GLUCOSE-RANDOM* NEGATIVE (Negative); URINE KETONES NEGATIVE (Negative); URINE NITRITE-REFLEX NEGATIVE (Negative); URINE PROTEIN (DIPSTICK) NEGATIVE (Negative); URINE UROBILINOGEN 0.2 E.U./dl (0.2-1.0)
[2019-09-28 20:28] LABS: URINE LEUKOCYTES-REFLEX 3+ (Negative)
[2019-09-28 20:34] LABS: BACTERIA-REFLEX >30 Many /HPF (None Seen); SQUAMOUS 0-3 Few /LPF (0-3); URINE WBC-REFLEX 6-15 Few /HPF (0-5)
[2019-09-28 20:35] LABS: CASTS None Seen /LPF (None Seen); CRYSTALS None Seen /LPF (None Seen); URINE RBC 3-10 Few /HPF (0-2)
[2019-09-28 21:37] LABS: HEMATOCRIT 37.7 % (42.0-52.0); HEMOGLOBIN 12.6 gm/dL (14.0-18.0); MCH 32.2 pg (26.0-34.0); MCHC 33.5 g/dL (28.0-37.0); MCV 96.2 fL (80.0-100.0); PLATELET COUNT 193 thou/uL (150-400); RBC 3.92 mil/uL (4.50-6.00); RDW 13.7 % (10.5-14.5); WBC 6.9 thou/uL (4.0-11.0)
[2019-09-28 21:46] LABS: ANION GAP 12 mmol/L (7-16); BUN 37 mg/dL (7-18); CALCIUM 10.2 mg/dL (8.5-10.1); CHLORIDE 100 mmol/L (98-107); CO2 27 mmol/L (21-32); CREATININE 2.4 mg/dL (0.7-1.3); GLUCOSE 108 mg/dL (74-106); POTASSIUM 4.1 mmol/L (3.5-5.1); SODIUM 139 mmol/L (136-145)
[2019-09-28 21:55] LABS: MAGNESIUM 2.2 mg/dL (1.8-2.4); TROPONIN-I <0.06 ng/mL (<0.06)
[2019-09-28 22:54] VITALS: BP 162/66
[2019-09-28] MEDS ORDERED: COLACE 100 MG100 MG PO (23:15)
[2019-09-29 00:14] VITALS: BP 148/67
[2019-09-29 00:19] VITALS: BP 168/77
--- NOTE | 2019-09-29 05:56 | NUR ---
NEW ADMIT FOR UTI. PATIENT AOX4 MAKES NEEDS KNOWN.PATIENT HAS BOTH ANKLES +1 EDEMA. PATIENT DENIED PAIN OR DISCOMFORT.PATIENT HAS RETENSION NEW ORDER TO STRAIGHT CATH PATIENT Q 6 HOURS. STRAIGHT CATH DONE X1 AT 0300 OUTPUT 300ML. PATIENT ENCOURAGED FLUIDS.PATIENT REFUSED DINNER. PATIENT USES C PAP AT NIGHT, PATIENT HAS NO C PAP AND FAMILY WILL BRING C PAP TODAY, O2 2L GIVEN PER PATIENT REQUEST. PATIENT 02 SAT IS >100.PATIENT NEEDS X2 ASSIST WITH ADL, TRANSFER, TOILETING AND BED MOBILITY.SKIN WARM AND INTACT, YEAST INFECTION NOTED ON THE RIGHT GROIN AREA, NEW ORDER OF NYSTATIN.PATIENT IN BED ASLEEP AT THIS TIME BREATHING REGULAR AND UNLABOURED.
[2019-09-29 08:43] VITALS: BP 147/81
--- NOTE | 2019-09-29 09:43 | EKG ---
[place] [address] [address] [facility] [place] [address] ELECTROCARDIOGRAM REPORT Name: MONTY SMART Room #: 461-P ADM IN M.R.#: [id number] Admission: 09/28/19 Attend Phys: Emre Anderson MD Discharge: Date of : 38 Report #: [id number] THIS REPORT FOR: //name// 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1940 Requested By: John Neely Order Number: [id number] MD: Seb Larose Measurements Intervals [place] Rate: 75 P: 50 NC: 206 QRS: -44 QRSD: 134 T: -70 QT: 392 QTc: 438 Interpretive Statements Sinus rhythm Ventricular premature complex Left bundle branch block Compared to ECG 03/02/2018 06:05:30 Atrial-paced complex(es) or rhythm no longer present Electronically Signed On 09-29-2019 9:42:[address] by Seb Larose [email or web address] <ELECTRONICALLY SIGNED> By: Seb Larose MD, [facility] 09/29/19 0942 1926 25 Seb Larose MD, [facility] /EPI
[2019-09-29 11:31] LABS: HEMOGLOBIN 12.2 gm/dL (14.0-18.0); MCH 31.9 pg (26.0-34.0); MCV 96.7 fL (80.0-100.0); PLATELET COUNT 185 thou/uL (150-400); RBC 3.83 mil/uL (4.50-6.00); RDW 13.7 % (10.5-14.5); WBC 7.8 thou/uL (4.0-11.0)
[2019-09-29 11:49] LABS: CALCIUM 10.1 mg/dL (8.5-10.1); CREATININE 2.2 mg/dL (0.7-1.3); MAGNESIUM 2.2 mg/dL (1.8-2.4)
[2019-09-29 12:06] LABS: ABSOLUTE NEUTROPHILS 4.4 thou/uL (1.4-8.2)
[2019-09-29 14:45] VITALS: BP 136/55
--- NOTE | 2019-09-29 19:47 | NUR ---
Assumed pt care this am, orders in for bladder scan prior to straight cat at 11:30a. 280 cc and 5 pm 0 cc, since both were less than 400 cc each time there was no need to straight cat. Pt was able to void in the commode multiple times through out the shift. Pt wa able to work with PT and OT, stayed on the recliner and would transfer from to and from the commode, max assists with a walker. POC followed, no signs or verbalizations of distress have been noted. Diet and medications are well tolerated.
[2019-09-29 19:57] VITALS: BP 137/67
--- NOTE | 2019-09-30 04:37 | NUR ---
PATIENT AOX4 MAKES NEEDS KNOWN.PAIN CONTROLLED THIS SHIFT. PATIENT USES C PAP AT NIGHT. PATIENT USES URINAL THIS SHIFT.PATIENT NEEDS X2 MAXIMUM ASSISTANCE WITH ADL, BED MOBILITY, TRANSFER AND TOILETING. PATIENT ENCOURAGED FLUIDS.PATIENT URINE IS YELLOW IN COLOR.PATIENT IN BED ASLEEP AT THIS TIME BREATHING REGULAR AND UNLABOURED. 2
[2019-09-30 05:20] LABS: HEMATOCRIT 36.2 % (42.0-52.0); HEMOGLOBIN 12.3 gm/dL (14.0-18.0); MCH 32.5 pg (26.0-34.0); MCHC 33.9 g/dL (28.0-37.0); MCV 95.8 fL (80.0-100.0); PLATELET COUNT 193 thou/uL (150-400); RBC 3.78 mil/uL (4.50-6.00); RDW 13.8 % (10.5-14.5); WBC 8.1 thou/uL (4.0-11.0)
[2019-09-30 05:37] LABS: ALBUMIN 3.1 g/dL (3.4-5.0); CALCIUM 9.6 mg/dL (8.5-10.1); MAGNESIUM 2.2 mg/dL (1.8-2.4); PHOSPHORUS 4.3 mg/dL (2.5-4.9); POTASSIUM 3.8 mmol/L (3.5-5.1); TOTAL BILIRUBIN 0.3 mg/dL (<0.1-1.0); TOTAL PROTEIN 7.5 g/dL (6.4-8.2)
[2019-09-30 06:25] LABS: ABSOLUTE NEUTROPHILS 4.4 thou/uL (1.4-8.2); ATYPICAL LYMPHS 4 %; LARGE PLATELETS OCCASIONAL
[2019-09-30 08:00] VITALS: BP 149/71
[2019-09-30 15:00] VITALS: BP 145/62
[2019-09-30 19:33] VITALS: BP 137/63
--- NOTE | 2019-09-30 20:06 | NUR ---
Assumed pt care this am, VS stable, no signs or verbalizations of distress have been noted. Pt was bladder scanned and had no indications of doing a straight cat, pt is able to void in the commode or use this urinal. POC followed, diet and medication are well tolerated. Family was at the bedside this pm. Endorsed to the night nurse.
[2019-10-01 05:06] LABS: CALCIUM 9.6 mg/dL (8.5-10.1); CREATININE 2.1 mg/dL (0.7-1.3); PHOSPHORUS 5.5 mg/dL (2.5-4.9); POTASSIUM 4.5 mmol/L (3.5-5.1)
--- NOTE | 2019-10-01 05:29 | NUR ---
Pt. rested quietly at short intervals during the night when checked on during frequent rounds. He had to be straight cath one time this shift. He offers no c/o pain. Up to the bedside comode with assistance of two and a gait belt. Pt. c/o insomnia and order received for one time melatonin which was helpful. Bed alarm is on.
[2019-10-01 08:43] VITALS: BP 153/77
[2019-10-01] MEDS ORDERED: KEFLEX500 M2 PO (10:03)
--- NOTE | 2019-10-01 10:32 | NUR ---
PT ADMITTED RELATED TO UTI. CM REVIEWED CHART AND SPOKE WITH CARE TEAM. CM MET WITH PT AT BEDSIDE THIS DAY. PT IS A&O X4. CM ROLE INTRODUCED. PT INDICATED HE LIVES IN A HOUSE WITH HIS WITH A RAMP TO ENTER AND NO STEPS INSIDE. PT INDICATED HE HAS AN ELECTRIC WC, MANUAL WC, FWW, TRANSPORT CHAIR, GRAB BARS, WIDENED DOORS, AND CPAP FOR HOME USE. 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 PT INDICATED THAT HE HAD [facility] HH IN THE PAST BUT FEELS HE WOULDN'T NEED IT UPON DC. PT INDICATED HIS SON LIVES IN THE LOWER LEVEL OF HIS HOUSE. PT HOPES TO RETURN HOME TODAY IF MEDICALLY STABLE. CM TO FOLLOW INDICATED WITH DC PLANNING.
[2019-10-01 11:48] VITALS: BP 153/77
--- NOTE | 2019-10-01 11:59 | NUR ---
CARE TEAM INDICATED THAT PT IS MEDICALLY STABLE TO DISHCARGE HOME THIS DAY. PT HAS ALL RECOMMENDED DME. PT INDICATED THAT HE DOESN'T FEEL THAT HE WIILL NEED HH UPON DC THAT HE HE IS COMFPRTABLE WITH CARES AND FAMILIAL ASSIST FROM AND SON. PT IS TO DC HOME TO SELF CARE. NO OTHER CM INTERVENTION INDICATED. CASE CLOSED.
--- NOTE | 2019-10-01 12:05 | NUR ---
ASSUMED CARE AT SHIFT CHANGE, ALERT AND ORIENTED X4. DENIES ANY DISOMFORT. VOIDED 300 ML ABMER COLORED URINE, BLADDAR SCANNED, AND SHOWS 257 ML OF URINE POST VOID. DR MCFARLANE NOTIFIED. DISCHARGE AND MEDICATION INSTRUCTION GIVEN TO PATIENT AND FAMILY, AND THEY VERBALIZED UNDERSTANDING. PATIENT DISCHARGED HOME WITH SPOUSE.
== END 2019-10-01 13:37 | disposition home or self-care (01) | DRG 690 ==
LOC: ER 18:13 → EROBS 22:35 → 4W 22:35 → ENTRNSPT 10-01 12:02 → 4W 10-01 13:37
PROVIDERS: Emergency Medicine; Hospitalist; Internal Medicine; ADMIT Hospitalist
PROC: 5A09357 Assistance with Respiratory Ventilation, Less than 24 Consecutive Hours, Continuous Positive Airway Pressure (ICD-10-PCS; principal; 2019-09-30)
DX: N39.0 Urinary tract infection, site not specified (principal); I13.0 Hypertensive heart and chronic kidney disease with heart failure and stage 1 through stage 4 chronic kidney disease, or unspecified chronic kidney disease; N31.9 Neuromuscular dysfunction of bladder, unspecified; Z68.32 Body mass index [BMI] 32.0-32.9, adult; N13.8 Other obstructive and reflux uropathy; N40.1 Benign prostatic hyperplasia with lower urinary tract symptoms; J44.9 Chronic obstructive pulmonary disease, unspecified; J45.909 Unspecified asthma, uncomplicated; E78.00 Pure hypercholesterolemia, unspecified; I50.9 Heart failure, unspecified; G47.30 Sleep apnea, unspecified; E78.5 Hyperlipidemia, unspecified; I25.5 Ischemic cardiomyopathy; I87.2 Venous insufficiency (chronic) (peripheral); R53.81 Other malaise; R53.83 Other fatigue; I25.10 Atherosclerotic heart disease of native coronary artery without angina pectoris; G89.29 Other chronic pain; M54.9 Dorsalgia, unspecified; I73.9 Peripheral vascular disease, unspecified; N18.3 Chronic kidney disease, stage 3 (moderate); E66.9 Obesity, unspecified; B96.20 Unspecified Escherichia coli [E. coli] as the cause of diseases classified elsewhere; I25.2 Old myocardial infarction; Z95.5 Presence of coronary angioplasty implant and graft; Z98.1 Arthrodesis status; Z95.810 Presence of automatic (implantable) cardiac defibrillator; Z82.49 Family history of ischemic heart disease and other diseases of the circulatory system; Z87.442 Personal history of urinary calculi; Z87.01 Personal history of pneumonia (recurrent); Z79.899 Other long term (current) drug therapy
CPT/HCPCS: 10040

== ENCOUNTER → 2019-11-14 | Outpatient (CLI) | payer OTHER, MEDICARE ==
[~2019-11-14] MED LIST changes: +COLACE 100 MG100 MG PO; +KEFLEX500 M2 PO
== END ==
LOC: SJCVCIMAG 12:14
DX: Z87.891 Personal history of nicotine dependence (principal); I65.23 Occlusion and stenosis of bilateral carotid arteries; E78.5 Hyperlipidemia, unspecified; I25.10 Atherosclerotic heart disease of native coronary artery without angina pectoris; E78.00 Pure hypercholesterolemia, unspecified; I48.0 Paroxysmal atrial fibrillation; I87.2 Venous insufficiency (chronic) (peripheral); D68.59 Other primary thrombophilia; Z95.0 Presence of cardiac pacemaker

== ENCOUNTER → 2020-02-26 | Outpatient (CLI) | payer OTHER, MEDICARE | LOC: SJCVCIMAG 10:01 → SJCVC 10:15 → SJCVCIMAG 13:30 | DX: I25.10 Atherosclerotic heart disease of native coronary artery without angina pectoris (principal); E78.00 Pure hypercholesterolemia, unspecified; E78.5 Hyperlipidemia, unspecified; I48.0 Paroxysmal atrial fibrillation; I87.2 Venous insufficiency (chronic) (peripheral); I65.23 Occlusion and stenosis of bilateral carotid arteries; I42.9 Cardiomyopathy, unspecified; D68.59 Other primary thrombophilia; R60.0 Localized edema; R06.02 Shortness of breath; R33.9 Retention of urine, unspecified; N18.4 Chronic kidney disease, stage 4 (severe); Z95.810 Presence of automatic (implantable) cardiac defibrillator; Z95.0 Presence of cardiac pacemaker; Z87.891 Personal history of nicotine dependence ==

== ENCOUNTER 2020-05-25 14:38 | Emergency (ER) | payer OTHER, MEDICARE ==
[~2020-05-25] VITALS: Ht 182.9 cm; Wt 111.1 kg
[2020-05-25 16:24] LABS: URINE BILIRUBIN NEGATIVE (Negative); URINE BLOOD 3+ (Negative); URINE CLARITY CLEAR; URINE COLOR YELLOW; URINE GLUCOSE-RANDOM* NEGATIVE (Negative); URINE KETONES NEGATIVE (Negative); URINE NITRITE-REFLEX NEGATIVE (Negative); URINE PROTEIN (DIPSTICK) NEGATIVE (Negative); URINE UROBILINOGEN 0.2 E.U./dl (0.2-1.0)
[2020-05-25 16:25] LABS: URINE LEUKOCYTES-REFLEX 2+ (Negative)
[2020-05-25 16:29] LABS: CASTS None Seen /LPF (None Seen); SQUAMOUS 0-3 Few /LPF (0-3); URINE RBC >20 Many /HPF (0-2)
[2020-05-25 16:30] LABS: CRYSTALS None Seen /LPF (None Seen); URINE WBC-REFLEX 0-5 Rare /HPF (0-5)
[2020-05-25 16:56] LABS: ABSOLUTE NEUTROPHILS 8.6 thou/uL (1.4-8.2); BASOPHILS 0.6 % (0.0-2.0); EOSINOPHILS 1.2 % (0.0-3.0); HEMATOCRIT 36.9 % (42.0-52.0); HEMOGLOBIN 12.3 gm/dL (14.0-18.0); LYMPHOCYTES 19.9 % (24.0-44.0); MCH 32.1 pg (26.0-34.0); MCHC 33.4 g/dL (28.0-37.0); MCV 95.9 fL (80.0-100.0); MONOCYTES 7.2 % (1.0-8.0); PLATELET COUNT 289 thou/uL (150-400); POLYS 71.1 % (36.0-66.0); RBC 3.85 mil/uL (4.50-6.00); RDW 13.4 % (10.5-14.5)
[2020-05-25 17:03] LABS: ANION GAP 8 mmol/L (7-16); BUN 42 mg/dL (7-18); CHLORIDE 103 mmol/L (98-107); CO2 30 mmol/L (21-32); CREATININE 2.6 mg/dL (0.7-1.3); GLUCOSE 96 mg/dL (74-106); POTASSIUM 4.6 mmol/L (3.5-5.1); SODIUM 141 mmol/L (136-145)
[2020-05-25 17:14] LABS: ALBUMIN 3.5 g/dL (3.4-5.0); SGOT 29 U/L (15-37); SGPT 31 U/L (30-65); TOTAL BILIRUBIN 0.5 mg/dL (0.2-1.0); TOTAL PROTEIN 7.9 g/dL (6.4-8.2); TROPONIN-I <0.06 ng/mL (<0.06)
[2020-05-25] MEDS ORDERED: KEFLEX500 M1 PO (18:32)
[2020-05-25 18:55] VITALS: BP 156/67
--- NOTE | 2020-05-26 08:44 | EKG ---
[facility] [place] [address] [place] [address] ELECTROCARDIOGRAM REPORT Name: MONTY SMART Room #: DEP [facility]#: [id number] Admission: 05/25/20 Attend Phys: Discharge: 05/25/20 Date of : 38 Report #: [id number] THIS REPORT FOR: cc: John Figueroa MD, Michael B. MD Lundgren,Seb Boateng MD [facility] ~ THIS REPORT FOR: //name// [facility] ED Test Date: 2020-05-25 Test Time: 14:58:33 Pat Name: MONTY SMART Department: Room: Gender: Case Consultant: [facility] : 1940 Requested By: Amelia Walton Order Number: [id number] MD: Seb Larose Measurements Intervals [place] Rate: 66 P: 28 PA: 210 QRS: -59 QRSD: 130 T: -38 QT: 396 QTc: 415 Interpretive Statements Sinus rhythm Left bundle branch block Compared to ECG 09/28/2019 19:26:48 Ventricular premature complex(es) no longer present Electronically Signed On 05-26-2020 8:44:22 CDT by Seb Larose [email or web address] <ELECTRONICALLY SIGNED> By: Seb Larose MD, [facility] 05/26/20 0844 1458 1458 Seb Larose MD, [facility] /EPI
== END 2020-05-25 18:55 | disposition home or self-care (01) ==
LOC: ER 14:38
PROVIDERS: Emergency Medicine
DX: R53.1 Weakness (principal); N39.0 Urinary tract infection, site not specified; R06.00 Dyspnea, unspecified; J44.9 Chronic obstructive pulmonary disease, unspecified; E78.5 Hyperlipidemia, unspecified; I25.2 Old myocardial infarction; I13.0 Hypertensive heart and chronic kidney disease with heart failure and stage 1 through stage 4 chronic kidney disease, or unspecified chronic kidney disease; N18.3 Chronic kidney disease, stage 3 (moderate); I50.9 Heart failure, unspecified; I25.10 Atherosclerotic heart disease of native coronary artery without angina pectoris; Z79.899 Other long term (current) drug therapy

== ENCOUNTER → 2020-07-08 | Outpatient (CLI) | payer OTHER, MEDICARE ==
[~2020-07-08] MED LIST changes: +KEFLEX500 M1 PO
== END ==
LOC: SJCVC 12:54
PROVIDERS: ATTEND Internal Medicine Cardiovascular Disease
DX: I25.10 Atherosclerotic heart disease of native coronary artery without angina pectoris (principal); E78.00 Pure hypercholesterolemia, unspecified; I42.9 Cardiomyopathy, unspecified; D68.59 Other primary thrombophilia; I48.0 Paroxysmal atrial fibrillation; I65.23 Occlusion and stenosis of bilateral carotid arteries; R60.0 Localized edema; I12.9 Hypertensive chronic kidney disease with stage 1 through stage 4 chronic kidney disease, or unspecified chronic kidney disease; N18.4 Chronic kidney disease, stage 4 (severe); G47.30 Sleep apnea, unspecified; I87.2 Venous insufficiency (chronic) (peripheral); I87.1 Compression of vein; Z95.810 Presence of automatic (implantable) cardiac defibrillator

== ENCOUNTER → 2020-07-09 | Outpatient (CLI) | payer OTHER, MEDICARE ==
[~2020-07-09] VITALS: Ht 182.9 cm; Wt 123.4 kg
[2020-07-09 12:59] VITALS: BP 156/76
[2020-07-09 13:25] LABS: HEMATOCRIT 36.5 % (42.0-52.0); HEMOGLOBIN 12.1 gm/dL (14.0-18.0); MCH 31.5 pg (26.0-34.0); MCHC 33.2 g/dL (28.0-37.0); MCV 94.8 fL (80.0-100.0); RBC 3.84 mil/uL (4.50-6.00); RDW 13.6 % (10.5-14.5); WBC 11.1 thou/uL (4.0-11.0)
[2020-07-09 13:34] LABS: CALCIUM 8.9 mg/dL (8.5-10.1); CREATININE 1.7 mg/dL (0.7-1.3); POTASSIUM 4.4 mmol/L (3.5-5.1)
== END | disposition home or self-care (01) ==
LOC: CATH 12:37
PROVIDERS: ATTEND Nuclear Medicine Nuclear Cardiology
DX: I87.1 Compression of vein (principal); I87.323 Chronic venous hypertension (idiopathic) with inflammation of bilateral lower extremity; R22.43 Localized swelling, mass and lump, lower limb, bilateral; I13.0 Hypertensive heart and chronic kidney disease with heart failure and stage 1 through stage 4 chronic kidney disease, or unspecified chronic kidney disease; N18.3 Chronic kidney disease, stage 3 (moderate); I25.10 Atherosclerotic heart disease of native coronary artery without angina pectoris; I25.2 Old myocardial infarction; I25.5 Ischemic cardiomyopathy; I48.0 Paroxysmal atrial fibrillation; I50.9 Heart failure, unspecified; J44.9 Chronic obstructive pulmonary disease, unspecified; E78.00 Pure hypercholesterolemia, unspecified; G47.30 Sleep apnea, unspecified; K21.9 Gastro-esophageal reflux disease without esophagitis; E66.09 Other obesity due to excess calories; Z98.890 Other specified postprocedural states; Z79.899 Other long term (current) drug therapy; Z79.01 Long term (current) use of anticoagulants; Z87.891 Personal history of nicotine dependence; Z95.810 Presence of automatic (implantable) cardiac defibrillator; Z82.49 Family history of ischemic heart disease and other diseases of the circulatory system

== ENCOUNTER → 2020-09-18 | Outpatient (CLI) | payer OTHER, MEDICARE | LOC: SJCVCIMAG 08:14 | PROVIDERS: ATTEND Nuclear Medicine Nuclear Cardiology | DX: M79.604 Pain in right leg (principal); M79.605 Pain in left leg; R22.43 Localized swelling, mass and lump, lower limb, bilateral; Z95.828 Presence of other vascular implants and grafts; I82.523 Chronic embolism and thrombosis of iliac vein, bilateral ==

== ENCOUNTER → 2021-01-13 | Outpatient (CLI) | payer OTHER, MEDICARE | LOC: SJCVCIMAG 07:02 | PROVIDERS: ATTEND Internal Medicine Cardiovascular Disease | DX: R94.31 Abnormal electrocardiogram [ECG] [EKG] (principal); I45.4 Nonspecific intraventricular block; I25.10 Atherosclerotic heart disease of native coronary artery without angina pectoris; I48.0 Paroxysmal atrial fibrillation; R60.0 Localized edema; I87.2 Venous insufficiency (chronic) (peripheral); I65.23 Occlusion and stenosis of bilateral carotid arteries; G47.30 Sleep apnea, unspecified; E78.00 Pure hypercholesterolemia, unspecified; D68.59 Other primary thrombophilia; I12.9 Hypertensive chronic kidney disease with stage 1 through stage 4 chronic kidney disease, or unspecified chronic kidney disease; N18.4 Chronic kidney disease, stage 4 (severe); Z95.810 Presence of automatic (implantable) cardiac defibrillator; Z79.899 Other long term (current) drug therapy; Z86.16 Personal history of COVID-19; Z87.891 Personal history of nicotine dependence; Z82.49 Family history of ischemic heart disease and other diseases of the circulatory system ==

== ENCOUNTER → 2021-07-21 | Outpatient (CLI) | payer OTHER, MEDICARE | LOC: SJCVC 10:27 | PROVIDERS: ATTEND Nurse Practitioner Adult Health | DX: R94.31 Abnormal electrocardiogram [ECG] [EKG] (principal); I77.9 Disorder of arteries and arterioles, unspecified; I87.2 Venous insufficiency (chronic) (peripheral); I48.0 Paroxysmal atrial fibrillation; I87.1 Compression of vein; I10 Essential (primary) hypertension; Z95.810 Presence of automatic (implantable) cardiac defibrillator; Z86.16 Personal history of COVID-19; Z79.899 Other long term (current) drug therapy; Z87.891 Personal history of nicotine dependence; Z72.89 Other problems related to lifestyle ==

== ENCOUNTER 2021-08-15 09:56 | Emergency (ER) | payer OTHER, MEDICARE ==
[~2021-08-15] VITALS: Ht 182.9 cm; Wt 99.8 kg
--- NOTE | ~2021-08-15 | EMS ---
[place] [address] EMS Patient Care Report Name: MONTY SMART Room #: DEP [facility] [place]#: [id number] Admission: 08/15/21 Attend Phys: Discharge: 08/15/21 Date of : 38 Report #: [id number] THIS REPORT FOR: //name// Report Transmitted: 08/17/2021 14:38 EMS Care Summary [place], [place]/[facility] Incident [id number] @ 08/15/2021 09:10 [address] [place] [address] Patient MONTY SMART Male, 81 Years 1940 Patient Address [address] [place] [address] Patient History Chronic Kidney Disease,Back Pain (Chronic), Patient Allergies No known allergies, Patient Medications Unknown, Chief Complaint lower back pain Disposition Transported No Lights/[place] Dispatch Reason Back Pain (Non-Traumatic) Transported To [facility] Narrative arrived on scene with patient laying supine in bed. not able to move. patients family surrounded informing that his lower back was hurt. we slid him on to the cot with his own sheet. secured him with all seatbelts the maneuvered him through the front door. slid patient into the ambulance [place] [address] EMS Patient Care Report Name: MONTY SMART Room #: DEP [facility]#: [id number] Admission: 08/15/21 Attend Phys: Discharge: 08/15/21 Date of : 38 Report #: [id number] grab a set of vitals. patient informed me that the back pain could be related to his kidney problem. he has a urinary drainage bag. I took sometime to check it out and no blood was present. arriving to the hospital we road him in on the stretcher. Arrived to patients bed removed all seatbelts and slid him right over on to the hospital bed. Initial Vitals @09:47P: 60,R: 20,BP: 115/84,Pain: 6/10,GCS: 15,CO: 0,SpO2: 90,Revised Trauma: 12, @09:28P: 68,R: 18,BP: 114/71,Pain: 6/10,GCS: 15,SpO2: 91,Revised Trauma: 12, Assessments @:20MENTAL:Time Oriented,Event Oriented,Person Oriented,Place Oriented,SKIN:HEENT:Head/Face: No Abnormalities,Neck/Airway: No Abnormalities,LUNG SOUNDS:General: No Abnormalities,ABDOMEN:General: No Abnormalities,PELVIS//GI:No Abnormalities,EXTREMITIES:Left Arm: No Abnormalities,Right Arm: No Abnormalities,Left Leg: No Abnormalities,Right Leg: No Abnormalities,PULSE:NEURO:No Abnormalities,@TRY ON BASTER Impression Back Pain Procedures @: ALS Assessment Response: UnchangedSucceeded @: BLS Assessment Response: Unchanged Timeline 09:08,Call Received 09:08,Dispatch Notified 09:10,Dispatched 09:11,En Route 09:18,On Scene 09:19,At Patient 09:20,ALS Assessment,Response: UnchangedSucceeded, 09:25,BLS Assessment,Response: Unchanged 09:28,BP: 114/71 M,PULSE: 68,RR: 18 R,SPO2: 91 Ox,ETCO2: ,BG: ,PAIN: 6,GCS: 15, 09:34,Depart Scene 09:47,BP: 115/84 M,PULSE: 60,RR: 20 R,SPO2: 90 Ox,ETCO2: ,BG: ,PAIN: 6,GCS: 15, 10:02,At Destination 10:10,Call Closed Disclaimer v1.1 Copyright 2020 [employer] This EMS Care Summary contains data elements from the applicable legal record (which may be displayed differently). It is designed to provide pertinent [address] [address] EMS Patient Care Report Name: BERRYMONTY [id number] Admission: 08/15/21 Attend Phys: Discharge: 08/15/21 Date of : 38 Report #: [id number] information for the following purposes: continuity of care, clinical quality, and state data reporting. The complete legal record is available to ED staff and administrators of the receiving hospital in [employer]'s Patient Tracker. All data is provided "as is."
[2021-08-15 12:58] VITALS: BP 137/58
== END 2021-08-15 12:54 | disposition home or self-care (01) ==
LOC: ER 09:56
DX: M54.50 Low back pain, unspecified (principal); J44.9 Chronic obstructive pulmonary disease, unspecified; I25.2 Old myocardial infarction; E78.00 Pure hypercholesterolemia, unspecified; I13.0 Hypertensive heart and chronic kidney disease with heart failure and stage 1 through stage 4 chronic kidney disease, or unspecified chronic kidney disease; N18.30 Chronic kidney disease, stage 3 unspecified; I50.9 Heart failure, unspecified; I25.5 Ischemic cardiomyopathy; I48.91 Unspecified atrial fibrillation; Z85.820 Personal history of malignant melanoma of skin; Z87.442 Personal history of urinary calculi; Z98.890 Other specified postprocedural states; Z79.51 Long term (current) use of inhaled steroids; Z79.1 Long term (current) use of non-steroidal anti-inflammatories (NSAID); Z79.891 Long term (current) use of opiate analgesic; Z79.899 Other long term (current) drug therapy